=== PATIENT | female | born 1950 | race Caucasian/White ===

== ENCOUNTER 2019-10-23 03:29 | Inpatient (IN) | payer MEDICARE ==
[2019-10-23] MEDS ORDERED: SODIUM CHLORIDE 0.9% 2,000 ML IV ONE ×2 (03:36→11:26)
--- NOTE | 2019-10-23 03:44 | ED ---
Altered Mental Status HPI - General Chief Complaint: Altered Mental Status Stated Complaint: Altered Mental Status Time Seen by Provider: 10/23/19 03:33 Source: patient, EMS Mode of arrival: EMS Limitations: altered mental status - History of Present Illness Initial Comments: This patient is a 69-year-old woman brought by ambulance to be evaluated for a ltered mental status and suspected abdominal pain. The patient does appear to be delirious and is only able to answer simple direct questions. When asked if she is experiencing pain she states everywhere. She denies dyspnea. Otherwise not able to give much history. She does repeatedly state just let me go. Complaint: altered mental status, other -: week(s) Consistency of Symptoms: getting worse Treatments Prior to Arrival: oxygen - Related Data Home Medications Medication Instructions Recorded Confirmed cloNIDine HCL [Catapres] 0.1 mg PO ONCE PRN 10/23/19 10/23/19 Allergies Allergy/AdvReac Type Severity Reaction Status Date / Time No Known Allergies Allergy Verified 10/23/19 07:40 Review of Systems ROS Statement: Those systems with pertinent positive or pertinent negative responses have been documented in the HPI. ROS Other: All systems not noted in ROS Statement are negative. Limitations: ROS unobtainable due to patients medical condition Past Medical History Additional Past Medical History / Comment(s): celiac disease Past Surgical History: Unable to Obtain Past Psychological History: Unable to Obtain Smoking Status: Current every day smoker Past Alcohol Use History: None Reported Past Drug Use History: None Reported - Past Family History Father Family Medical History: Coronary Artery Disease (CAD) Mother Family Medical History: Coronary Artery Disease (CAD) General Exam Limitations: altered mental status General appearance: alert, other (Appears delirious) Head exam: Present: atraumatic, normocephalic Eye exam: Present: normal appearance. Absent: scleral icterus, conjunctival injection ENT exam: Present: mucous membranes dry, other (Or dentition) Neck exam: Present: normal inspection, full ROM Respiratory exam: Present: normal lung sounds bilaterally, rhonchi. Absent: respiratory distress, wheezes, rales Cardiovascular Exam: Present: normal rhythm, tachycardia, normal heart sounds. Absent: systolic murmur, diastolic murmur, rubs, gallop GI/Abdominal exam: Present: distended, tenderness. Absent: guarding, rebound, rigid, mass Extremities exam: Present: pedal edema Neurological exam: Present: alert, CN II-XII intact. Absent: oriented X3, motor sensory deficit Skin exam: Present: warm, dry, intact, pallor. Absent: rash Course Vital Signs 10/23/19 10/23/19 10/23/19 03:30 04:00 04:15 Temperature 97.9 F Pulse Rate 118 H 108 H Pulse Rate [ 113 H Loan Coordinator ] Respiratory 16 20 20 Rate Blood Pressure 78/56 133/85 O2 Sat by Pulse 99 98 Oximetry 10/23/19 10/23/19 10/23/19 04:30 05:00 05:30 Temperature Pulse Rate 101 H 99 98 Pulse Rate [ Loan Coordinator ] Respiratory 24 18 20 Rate Blood Pressure 127/70 127/70 130/85 O2 Sat by Pulse 98 98 98 Oximetry 10/23/19 10/23/19 10/23/19 06:00 06:30 07:30 Temperature Pulse Rate 105 H 109 H 107 H Pulse Rate [ Loan Coordinator ] Respiratory 18 18 18 Rate Blood Pressure 114/84 106/75 103/76 O2 Sat by Pulse 98 98 Oximetry 10/23/19 10/23/19 10/23/19 07:45 08:00 08:15 Temperature 97.9 F Pulse Rate 108 H 110 H 107 H Pulse Rate [ Loan Coordinator ] Respiratory 28 H 32 H 23 Rate Blood Pressure 96/72 96/72 51/20 O2 Sat by Pulse 96 96 Oximetry 10/23/19 10/23/19 10/23/19 08:30 08:45 08:48 Temperature Pulse Rate 107 H 107 H 107 H Pulse Rate [ Loan Coordinator ] Respiratory 39 H 12 24 Rate Blood Pressure 67/25 54/31 98/61 O2 Sat by Pulse 95 Oximetry 10/23/19 10/23/19 08:55 09:18 Temperature Pulse Rate 105 H 104 H Pulse Rate [ Loan Coordinator ] Respiratory 22 18 Rate Blood Pressure 94/57 79/51 O2 Sat by Pulse 94 L 94 L Oximetry - Reevaluation(s) Reevaluation #1: 10/23/19 05:43 Case is discussed with Dr. Short, covering for surgery. His recommendations are incorporated, and he will see the patient shortly this morning. Reevaluation #2: 10/23/19 06:[address] Crowder for intensive care management. I was also informed that the patient had lost her peripheral IV access and will place a central line after being discussed this with patient's . Procedures - Central Line Placement Left SC Consent Obtained: emergent situation Patient Placed on Monitor/Pulse Ox: Yes Prep: mask, gown, gloves Central Line Prep: Chlorhexidine scrub, sterile drapes applied Local Anesthesia Used: Lidocaine 1% Central Line Lumen Inserted: triple Central Line Position: good blood return, all ports aspirated, flushed, capped, sutured in place with nylon Dressing Applied: Tegaderm Post Procedure X-Ray: tip of catheter in good position Patient Tolerated Procedure: well Complications: none - Sepsis Sepsis Focused Exam #1 Sepsis Focused Exam Date: 10/23/19 Sepsis Focused Exam Time: 08:00 Sepsis Focused Exam Complete: Yes Vital Signs & RN Notes Reviewed: Yes Capillary Refill: < 2 Seconds: Fingers Peripheral Pulses: Normal: Radial (R) Skin Color: Pallor Respiratory Exam: respiratory distress (Mild tachypnea), rhonchi Cardiovascular Exam: normal rhythm, tachycardia (Rate 104 bpm), normal heart sounds Medical Decision Making - Medical Decision Making Patient is 69-year-old woman brought from home by ambulance. She does appear to be septic with possible intra-abdominal surgical condition. She is sent directly for CT. Fluid resuscitation and antibiotics started. Surgery on-call was contacted and treatment recommendations are incorporated. Surgeon will see the patient early. I did have discussion with patient and regarding whether they would like surgery and they appear to be struggling with this question and also the question as to CODE STATUS. - Lab Data Result diagrams: 10/23/19 16:00 10/23/19 16:00 Lab Results 10/23/19 10/23/19 10/23/19 Range/Units 03:37 03:37 03:37 WBC 19.2 H (3.8-10.6) k/uL RBC 4.98 (3.80-5.40) m/uL Hgb 16.2 H (11.4-16.0) gm/dL Hct 50.1 H (34.0-46.0) % MCV 100.6 H (80.0-100.0) fL MCH 32.6 (25.0-35.0) pg MCHC 32.4 (31.0-37.0) g/dL RDW 13.6 (11.5-15.5) % Plt Count 418 (150-450) k/uL Neutrophils % 89 % Lymphocytes % 6 % Monocytes % 3 % Eosinophils % 0 % Basophils % 1 % Neutrophils # 17.0 H (1.3-7.7) k/uL Lymphocytes # 1.2 (1.0-4.8) k/uL Monocytes # 0.6 (0-1.0) k/uL Eosinophils # 0.1 (0-0.7) k/uL Basophils # 0.2 (0-0.2) k/uL PT (9.0-12.0) sec INR (<1.2) APTT (22.0-30.0) sec Sodium 138 (137-145) mmol/L Potassium 3.0 L (3.5-5.1) mmol/L Chloride 92 L (98-107) mmol/L Carbon Dioxide 20 L (22-30) mmol/L Anion Gap 26 mmol/L BUN 32 H (7-17) mg/dL Creatinine 2.08 H (0.52-1.04) mg/dL Est GFR (CKD-EPI)AfAm 28 (>60 ml/min/1.73 sqM) Est GFR (CKD-EPI)NonAf 24 (>60 ml/min/1.73 sqM) Glucose 136 H (74-99) mg/dL Lactic Ac Sepsis Rflx Plasma Lactic Acid Aftab 15.6 H* (0.7-2.0) mmol/L Calcium 7.9 L (8.4-10.2) mg/dL Total Bilirubin 2.7 H (0.2-1.3) mg/dL AST 124 H (14-36) U/L ALT 38 H (4-34) U/L Alkaline Phosphatase 232 H (38-126) U/L Troponin I (0.000-0.034) ng/mL Total Protein 5.2 L (6.3-8.2) g/dL Albumin 2.5 L (3.5-5.0) g/dL Amylase <30 L (30-110) U/L Lipase 15 L (23-300) U/L Urine Color Urine Appearance (Clear) Urine RBC (0-5) /hpf Urine WBC (0-5) /hpf Urine WBC Clumps (None) /hpf Urine Bacteria (None) /hpf Hyaline Casts (0-2) /lpf Urine Mucus (None) /hpf Urine Yeast (Budding) (None) /hpf 10/23/19 10/23/19 10/23/19 Range/Units 03:37 03:37 03:45 WBC (3.8-10.6) k/uL RBC (3.80-5.40) m/uL Hgb (11.4-16.0) gm/dL Hct (34.0-46.0) % MCV (80.0-100.0) fL MCH (25.0-35.0) pg MCHC (31.0-37.0) g/dL RDW (11.5-15.5) % Plt Count (150-450) k/uL Neutrophils % % Lymphocytes % % Monocytes % % Eosinophils % % Basophils % % Neutrophils # (1.3-7.7) k/uL Lymphocytes # (1.0-4.8) k/uL Monocytes # (0-1.0) k/uL Eosinophils # (0-0.7) k/uL Basophils # (0-0.2) k/uL PT 13.6 H (9.0-12.0) sec INR 1.4 H (<1.2) APTT 27.3 (22.0-30.0) sec Sodium (137-145) mmol/L Potassium (3.5-5.1) mmol/L Chloride (98-107) mmol/L Carbon Dioxide (22-30) mmol/L Anion Gap mmol/L BUN (7-17) mg/dL Creatinine (0.52-1.04) mg/dL Est GFR (CKD-EPI)AfAm (>60 ml/min/1.73 sqM) Est GFR (CKD-EPI)NonAf (>60 ml/min/1.73 sqM) Glucose (74-99) mg/dL Lactic Ac Sepsis Rflx Plasma Lactic Acid Aftab (0.7-2.0) mmol/L Calcium (8.4-10.2) mg/dL Total Bilirubin (0.2-1.3) mg/dL AST (14-36) U/L ALT (4-34) U/L Alkaline Phosphatase (38-126) U/L Troponin I 0.467 H* (0.000-0.034) ng/mL Total Protein (6.3-8.2) g/dL Albumin (3.5-5.0) g/dL Amylase (30-110) U/L Lipase (23-300) U/L Urine Color Brown Urine Appearance Cloudy H (Clear) Urine RBC 22 H (0-5) /hpf Urine WBC >182 H (0-5) /hpf Urine WBC Clumps Many H (None) /hpf Urine Bacteria Many H (None) /hpf Hyaline Casts 2970 H (0-2) /lpf Urine Mucus Many H (None) /hpf Urine Yeast (Budding) Many H (None) /hpf 10/23/19 Range/Units 04:50 WBC (3.8-10.6) k/uL RBC (3.80-5.40) m/uL Hgb (11.4-16.0) gm/dL Hct (34.0-46.0) % MCV (80.0-100.0) fL MCH (25.0-35.0) pg MCHC (31.0-37.0) g/dL RDW (11.5-15.5) % Plt Count (150-450) k/uL Neutrophils % % Lymphocytes % % Monocytes % % Eosinophils % % Basophils % % Neutrophils # (1.3-7.7) k/uL Lymphocytes # (1.0-4.8) k/uL Monocytes # (0-1.0) k/uL Eosinophils # (0-0.7) k/uL Basophils # (0-0.2) k/uL PT (9.0-12.0) sec INR (<1.2) APTT (22.0-30.0) sec Sodium (137-145) mmol/L Potassium (3.5-5.1) mmol/L Chloride (98-107) mmol/L Carbon Dioxide (22-30) mmol/L Anion Gap mmol/L BUN (7-17) mg/dL Creatinine (0.52-1.04) mg/dL Est GFR (CKD-EPI)AfAm (>60 ml/min/1.73 sqM) Est GFR (CKD-EPI)NonAf (>60 ml/min/1.73 sqM) Glucose (74-99) mg/dL Lactic Ac Sepsis Rflx Y Plasma Lactic Acid Aftab (0.7-2.0) mmol/L Calcium (8.4-10.2) mg/dL Total Bilirubin (0.2-1.3) mg/dL AST (14-36) U/L ALT (4-34) U/L Alkaline Phosphatase (38-126) U/L Troponin I (0.000-0.034) ng/mL Total Protein (6.3-8.2) g/dL Albumin (3.5-5.0) g/dL Amylase (30-110) U/L Lipase (23-300) U/L Urine Color Urine Appearance (Clear) Urine RBC (0-5) /hpf Urine WBC (0-5) /hpf Urine WBC Clumps (None) /hpf Urine Bacteria (None) /hpf Hyaline Casts (0-2) /lpf Urine Mucus (None) /hpf Urine Yeast (Budding) (None) /hpf - EKG Data -: EKG Interpreted by Me EKG shows normal: sinus rhythm, axis (Normal), intervals (Normal) Rate: tachycardia (Rate approximate 1:15 bpm) Critical Care Time Critical Care Time: Yes (40 minutes) Disposition Clinical Impression: Sepsis, Abdominal pain, Bowel obstruction, Acute kidney injury, Elevated troponin I level, Lactic acidosis Disposition: ADMITTED IP TO THIS [facility] Condition: Critical
[2019-10-23 04:16] LABS: INR 1.4 (<1.2); Partial Thromboplastin Time 27.3 sec (22.0-30.0); Prothrombin Time 13.6 sec (9.0-12.0)
[2019-10-23 04:17] LABS: African American GFR (CKD) 28 (>60 ml/min/1.73 sqM); Albumin 2.5 g/dL (3.5-5.0); Alkaline Phosphatase 232 U/L (38-126); Amylase <30 U/L (30-110); Anion Gap 26 mmol/L; Blood Urea Nitrogen 32 mg/dL (7-17); Calcium 7.9 mg/dL (8.4-10.2); Carbon Dioxide 20 mmol/L (22-30); Chloride 92 mmol/L (98-107); Glucose 136 mg/dL (74-99); Non-African American GFR(CKD) 24 (>60 ml/min/1.73 sqM); Sodium 138 mmol/L (137-145); Total Bilirubin 2.7 mg/dL (0.2-1.3); Total Protein 5.2 g/dL (6.3-8.2)
[2019-10-23 04:19] LABS: Bacteria,Urine Many /hpf; Budding Yeast,Urine Many /hpf; Mucus,Urine Many /hpf; RBC,Urine 22 /hpf (0-5); WBC,Urine >182 /hpf (0-5)
[2019-10-23 04:20] LABS: Appearance,Urine Cloudy (Clear); Color,Urine Brown
[2019-10-23 04:21] LABS: Hyaline Casts,Urine 2970 /lpf (0-2)
--- NOTE | 2019-10-23 04:35 | CT ---
EXAMINATION TYPE: CT brain wo con DATE OF EXAM: 10/23/2019 COMPARISON: None HISTORY: AMS CT DLP: 1138.40 mGycm Automated exposure control for dose reduction was used. There is some cerebral cortical atrophy. There is no mass effect nor midline shift. There is no sign of intracranial hemorrhage. There is mild hypodensity in the periventricular white matter. Calvarium is intact. IMPRESSION: Cerebral atrophy and chronic small vessel ischemia. No acute intracranial abnormality.
[2019-10-23 04:36] LABS: Basophils # (A) 0.2 k/uL (0-0.2); Basophils % (A) 1 %; Eosinophils # (A) 0.1 k/uL (0-0.7); Eosinophils % (A) 0 %; HCT 50.1 % (34.0-46.0); HGB 16.2 gm/dL (11.4-16.0); Lymphocytes # (A) 1.2 k/uL (1.0-4.8); Lymphocytes % (A) 6 %; MCH 32.6 pg (25.0-35.0); MCHC 32.4 g/dL (31.0-37.0); MCV 100.6 fL (80.0-100.0); Mean Platelet Volume 7.7; Monocytes # (A) 0.6 k/uL (0-1.0); Monocytes % (A) 3 %; Neutrophils % (A) 89 %; Platelet Count 418 k/uL (150-450); RBC 4.98 m/uL (3.80-5.40); RDW 13.6 % (11.5-15.5); WBC 19.2 k/uL (3.8-10.6)
[2019-10-23 04:46] LABS: ALT 38 U/L (4-34)
[2019-10-23 04:47] LABS: AST 124 U/L (14-36)
--- NOTE | 2019-10-23 04:48 | CT ---
EXAMINATION TYPE: CT abdomen pelvis wo con DATE OF EXAM: 10/23/2019 COMPARISON: 12/02/2009 HISTORY: ABD PAIN CT DLP: 655.2 mGycm Automated exposure control for dose reduction was used. The lung bases are clear of consolidation. There is no pleural effusion. There is diffuse fatty infil tration of the liver. Spleen is intact. Stomach is intact. There is small hiatal hernia. There is sma ll pericardial effusion. There is no evidence of pancreatic mass. There is pancreatic atrophy. There is no adrenal mass. Kidneys show normal size and contour. There is no hydronephrosis. There is dilated large bowel with large amount of fecal material down to the rectum. Cecum measures 10 cm. The re is narrowing of the sigmoid colon in the mid pelvis with surgical clips. This area is not well darshan luated. There appears to be some colonic wall thickening of the sigmoid colon. There is no retroperit anthony adenopathy. Urinary bladder is not well evaluated. There is De La Fuente catheter in the bladder. Blad jose appears empty. There is no inguinal hernia. There is right hip prosthesis. Bony pelvis is intact. There are spondylotic changes in the lumbar spine. There is no compression fracture. 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 There is no mesenteric edema. There is no sign of pneumoperitoneum. IMPRESSION: Dilated large bowel down to the mid sigmoid colon. There is previous surgery. There is possible mass or stricture in this area. Tumor is possible. Follow-up recommended. Fatty infiltration of the liver. Small pericardial effusion.
[2019-10-23] MEDS ORDERED: NICOTINE 14MG/24HR PATCH TRANSDERM STA (05:15)
[2019-10-23] MEDS ORDERED: MORPHINE SULFATE 4 MG/ML SYRINGE IV STA (05:20)
[2019-10-23] MEDS ORDERED: SODIUM CHLORIDE 0.9% 1,000 ML IV ONE ×6 (05:34→19:14)
[2019-10-23] MEDS ORDERED: LEVOFLOXACIN 750MG-D5W PMX 750 MG in DEXTROSE/WATER 1 150ML.BAG IVPB STA (05:43)
[2019-10-23] MEDS: LORazepam 2 MG/ML INJ IV STA ×2 (06:30→07:11)
--- NOTE | 2019-10-23 07:25 | XR ---
EXAMINATION TYPE: XR chest 1V confirm line [facility] DATE OF EXAM: 10/23/2019 COMPARISON: Chest x-ray August 17, 2012. HISTORY: Status post central line and NG tube placement. TECHNIQUE: Single AP portable frontal semiupright view of the chest is obtained. FINDINGS: New Left subclavian central venous catheter terminates in SVC. New nasogastric tube projec ts below diaphragm. Chronic parenchymal changes bilaterally redemonstrated without suspicious focal a irspace opacity, pleural effusion, or pneumothorax seen. Diminished inspiration on current study note d. Cardiac silhouette size is stable and mildly enlarged. Osseous structures are demineralized. Under lying scoliosis there is redemonstrated. Cholecystectomy clips again seen. Partial visualization of g as prominent bowel loops in the upper to mid abdomen noted. IMPRESSION: New nasogastric tube and left-sided subclavian venous catheter are satisfactory in posit ion. No pneumothorax. Mild cardiomegaly and chronic parenchymal changes without suspicious acute pulm onary process.
[2019-10-23] MEDS ORDERED: NOREPINEPHRINE 32 MG in SODIUM CHLORIDE 0.9% 218 ML IV ONE (08:16)
[2019-10-23] MEDS ORDERED: FAMOTIDINE 20 MG/2 ML VIAL IV SCH (09:00)
[2019-10-23 10:04] LABS: Glucose,Whole Blood 77 mg/dL (75-99)
--- NOTE | 2019-10-23 10:13 | CT ---
EXAMINATION TYPE: CT abdomen pelvis wo con DATE OF EXAM: 10/23/2019 HISTORY: colonic obstruction CT DLP: 716.1 mGycm. Automated Exposure Control for Dose Reduction was Utilized. TECHNIQUE: CT scan of the abdomen and pelvis is performed without oral or IV contrast. Attempt is made with rectal contrast. COMPARISON: CT earlier today. FINDINGS: Within the limitations of a non-contrast study, the following observations are made. LUNG BASES: No significant abnormality is appreciated. LIVER/GB: Liver remains markedly low dense consistent with diffuse fatty infiltration. Cholecystectom y clips are redemonstrated. PANCREAS: Mild/moderate generalized atrophy. SPLEEN: New small amount of perisplenic ascites posterior lateral margin axial image 20. ADRENALS: No significant abnormality is seen. KIDNEYS: No renal calculi or hydronephrosis bilaterally. De La Fuente catheter in decompressed bladder redem onstrated. BOWEL: Interval placement of nasogastric tube with decompression of stomach. Central small bowel loop s are slightly prominent with few air-fluid levels. No greater than 3 cm dilatation is present. There is marked fecal filled dilatation of the colon from cecum to proximal sigmoid colon level similar to prior. There is limited amount of contrast in the rectum. Mid to distal sigmoid colon shows persiste nt soft tissue irregularity axial image 107 likely reflecting obstructing apple core-type neoplasm gi jd the amount of proximal colonic distention. This finding is best appreciated on axial image 106 an d has similar appearance to prior CT image. Colonic distention up to 9.6 cm noted involving right col on similar to prior. There is some curvilinear nondependent air towards the hepatic flexure for refer ence axial image 57, this could reflect air trapped by fecal debris but pneumatosis cannot be exclude d. No portal venous air or pneumoperitoneum is present. Gas nondilated terminal ileum seen on coronal image 59. GENITAL ORGANS: Uterus is surgically absent. Surgical clips in the pelvis are seen LYMPH NODES: No greater than 1cm abdominal or pelvic lymph nodes are appreciated. OSSEOUS STRUCTURES: Osseous structures are demineralized. Metallic hardware from right hip arthroplas ty causes streak artifact limiting evaluation of of pelvic structures. Advanced degenerative change l eft hip with marked joint space loss and [id number] appearance with extensive subchondral cystic ch gunjan and spurring is redemonstrated. Loss of normal curvature of the spine with multilevel spurring i n the thoracic spine. There is moderate disc space narrowing and vacuum disc phenomenon L4-L5 and L5- S1 levels redemonstrated. OTHER: [id number] diffuse subcutaneous edema remains present. IMPRESSION: Suboptimal opacification of colon with attempted rectal contrast. There is redemonstratio n of high-grade mid sigmoid colonic obstruction likely on basis of colonic neoplasm. Colonic distenti on up to 9.6 cm present. Areas of pneumatosis are not entirely excluded though I favor trapped air. C orrelate clinically with lactic acid values. Advise surgical exploration.
[2019-10-23] MEDS: SODIUM CHLORIDE 0.9% 1,000 ML IV ONE ×2 (10:31→12:01)
[2019-10-23] MEDS ORDERED: HYDROmorphone 1 MG/ML 1 ML SYRINGE IVP PRN (11:06)
[2019-10-23] MEDS: HEPARIN SODIUM,PORCINE 5,000 UNIT/ML 1 ML VIAL SQ SCH ×2 (11:17→18:02)
[2019-10-23] MEDS: PIPERACILLIN-TAZOBACTAM 3.375 GM in SODIUM CHLORIDE 0.9% 100 ML IVPB SCH ×2 (11:17→19:02)
[2019-10-23] MEDS: SODIUM CHLORIDE 0.9% 1,000 ML IV SCH ×2 (12:00→19:22)
--- NOTE | 2019-10-23 12:04 | P.GSCN ---
History of Present Illness Consult date: 10/23/19 Reason for Consult: abdominal pain Requesting physician: Brice Hernandez History of present illness: CHIEF COMPLAINT: abdominal pain HISTORY OF PRESENT ILLNESS: 69-year-old female who presented to the emergency room due to altered mental status and abdominal pain. She underwent CT abdomen and pelvis which revealed dilated large bowel down to the mid sigmoid colon. Possible mass or stricture. Repeat CT was performed with rectal contrast. 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 Colonic distention up to 9.6 cm present. General surgery was consulted for evaluation. Patient examined in the intensive care unit with Dr. Short. Patient's is at the bedside who is providing the majority of the history. He states the patient has been having abdominal pain for approximately 3 weeks. He states she has been unable to keep food or fluids down for almost two weeks. Patient is confused and in wrist restraints. She appears uncomfortable and in pain. Patient has received 3L in IV fluids. She is on Levophed for BP support. PAST MEDICAL HISTORY: See list. PAST SURGICAL HISTORY: See list. SOCIAL HISTORY: No illicit drug use. REVIEW OF SYSTEMS: Unable to obtain secondary to altered mental status PHYSICAL EXAM: VITAL SIGNS: Reviewed. GENERAL: Well-developed in no mild distress-appears uncomfortable. HEENT: No sclera icterus. Extraocular movements grossly intact. Moist buccal mucosa. Head is atraumatic, normocephalic. ABDOMEN: Distended. Tender to palpation. NG to LIS present. NEUROLOGIC: Awake. Confused. LABORATORY DATA: WBC 19.2. Hemoglobin 16.2. Platelet count 418. Sodium 138. Potassium 3.0. BUN 32. Creatinine 2.08. Lactic acid 15.6. Repeat 14.1. IMAGING: CT abdomen and pelvis which revealed dilated large bowel down to the mid sigmoid colon. Possible mass or stricture. Repeat CT was performed with rectal contrast. 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 Colonic distention up to 9.6 cm present ASSESSMENT: 1. Abdominal pain 2. Colonic obstruction, likely secondary to neoplasm PLAN: Continue ICU management per Dr. Crowder Continue IV fluids. Continue vasopressors Additional 3L NS boluses to be given now Continue NG to LIS. Continue NPO status Monitor WBC. Continue IV antibiotics Patient to undergo exploratory laparotomy today with Dr. Short Nurse practitioner note has been reviewed by physician. Signing provider agrees with the documented findings, assessment, and plan of care. Past Medical History Past Medical History: Chest Pain / Angina, Hypertension, Osteoarthritis (OA) Additional Past Medical History / Comment(s): Spouse states pt has had nausea, vomiting and abdominal pain after eating for the past 2 weeks, celiac disease, chronic back pain, chronic pain syndrome, DJD, bursitis, antral erosions, gastritis, smalll hiatal hernia, diverticulitis, UTI, osteoporosis, anemia, past coccyx/rib fractures History of Any Multi-Drug Resistant Organisms: None Reported Past Surgical History: Joint Replacement, Tonsillectomy Additional Past Surgical History / Comment(s): Spouse states pt had a total hysterectomy and some benign tumors removed from her abdomin at [facility] years ago, EGD, colonoscopy, total R hip arthroplasty. Past Anesthesia/Blood Transfusion Reactions: No Reported Reaction Additional Past Anesthesia/Blood Transfusion Reaction / Comm: Pt received blood in past without reaction. Smoking Status: Current every day smoker - Past Family History Father Family Medical History: Coronary Artery Disease (CAD) Mother Family Medical History: Coronary Artery Disease (CAD) Medications and Allergies Home Medications Medication Instructions Recorded Confirmed Type cloNIDine HCL [Catapres] 0.1 mg PO ONCE PRN 10/23/19 10/23/19 History Allergies Allergy/AdvReac Type Severity Reaction Status Date / Time No Known Allergies Allergy Verified 10/23/19 07:40 Surgical - Exam Vital Signs Temp Pulse Resp BP Pulse Ox 97.9 F 118 H 16 78/56 99 10/23/19 03:30 10/23/19 03:30 10/23/19 03:30 10/23/19 03:30 10/23/19 03:30 Results - Labs 10/23/19 03:37 10/23/19 03:37 Abnormal Lab Results - Last 24 Hours (Table) 10/23/19 10/23/19 10/23/19 Range/Units 03:37 03:37 03:37 WBC 19.2 H (3.8-10.6) k/uL Hgb 16.2 H (11.4-16.0) gm/dL Hct 50.1 H (34.0-46.0) % MCV 100.6 H (80.0-100.0) fL Neutrophils # 17.0 H (1.3-7.7) k/uL PT (9.0-12.0) sec INR (<1.2) Potassium 3.0 L (3.5-5.1) mmol/L Chloride 92 L (98-107) mmol/L Carbon Dioxide 20 L (22-30) mmol/L BUN 32 H (7-17) mg/dL Creatinine 2.08 H (0.52-1.04) mg/dL Glucose 136 H (74-99) mg/dL Plasma Lactic Acid Aftab 15.6 H* (0.7-2.0) mmol/L Calcium 7.9 L (8.4-10.2) mg/dL Total Bilirubin 2.7 H (0.2-1.3) mg/dL AST 124 H (14-36) U/L ALT 38 H (4-34) U/L Alkaline Phosphatase 232 H (38-126) U/L Troponin I (0.000-0.034) ng/mL Total Protein 5.2 L (6.3-8.2) g/dL Albumin 2.5 L (3.5-5.0) g/dL Amylase <30 L (30-110) U/L Lipase 15 L (23-300) U/L Urine Appearance (Clear) Urine RBC (0-5) /hpf Urine WBC (0-5) /hpf Urine WBC Clumps (None) /hpf Urine Bacteria (None) /hpf Hyaline Casts (0-2) /lpf Urine Mucus (None) /hpf Urine Yeast (Budding) (None) /hpf 10/23/19 10/23/19 10/23/19 Range/Units 03:37 03:37 03:45 WBC (3.8-10.6) k/uL Hgb (11.4-16.0) gm/dL Hct (34.0-46.0) % MCV (80.0-100.0) fL Neutrophils # (1.3-7.7) k/uL PT 13.6 H (9.0-12.0) sec INR 1.4 H (<1.2) Potassium (3.5-5.1) mmol/L Chloride (98-107) mmol/L Carbon Dioxide (22-30) mmol/L BUN (7-17) mg/dL Creatinine (0.52-1.04) mg/dL Glucose (74-99) mg/dL Plasma Lactic Acid Aftab (0.7-2.0) mmol/L Calcium (8.4-10.2) mg/dL Total Bilirubin (0.2-1.3) mg/dL AST (14-36) U/L ALT (4-34) U/L Alkaline Phosphatase (38-126) U/L Troponin I 0.467 H* (0.000-0.034) ng/mL Total Protein (6.3-8.2) g/dL Albumin (3.5-5.0) g/dL Amylase (30-110) U/L Lipase (23-300) U/L Urine Appearance Cloudy H (Clear) Urine RBC 22 H (0-5) /hpf Urine WBC >182 H (0-5) /hpf Urine WBC Clumps Many H (None) /hpf Urine Bacteria Many H (None) /hpf Hyaline Casts 2970 H (0-2) /lpf Urine Mucus Many H (None) /hpf Urine Yeast (Budding) Many H (None) /hpf 10/23/19 Range/Units 08:30 WBC (3.8-10.6) k/uL Hgb (11.4-16.0) gm/dL Hct (34.0-46.0) % MCV (80.0-100.0) fL Neutrophils # (1.3-7.7) k/uL PT (9.0-12.0) sec INR (<1.2) Potassium (3.5-5.1) mmol/L Chloride (98-107) mmol/L Carbon Dioxide (22-30) mmol/L BUN (7-17) mg/dL Creatinine (0.52-1.04) mg/dL Glucose (74-99) mg/dL Plasma Lactic Acid Aftab 14.1 H* (0.7-2.0) mmol/L Calcium (8.4-10.2) mg/dL Total Bilirubin (0.2-1.3) mg/dL AST (14-36) U/L ALT (4-34) U/L Alkaline Phosphatase (38-126) U/L Troponin I (0.000-0.034) ng/mL Total Protein (6.3-8.2) g/dL Albumin (3.5-5.0) g/dL Amylase (30-110) U/L Lipase (23-300) U/L Urine Appearance (Clear) Urine RBC (0-5) /hpf Urine WBC (0-5) /hpf Urine WBC Clumps (None) /hpf Urine Bacteria (None) /hpf Hyaline Casts (0-2) /lpf Urine Mucus (None) /hpf Urine Yeast (Budding) (None) /hpf Microbiology - Last 24 Hours (Table) 10/23/19 03:45 Urine Culture - Preliminary Urine,Clean Catch Diabetes panel 10/23/19 Range/Units 03:37 Sodium 138 (137-145) mmol/L Potassium 3.0 L (3.5-5.1) mmol/L Chloride 92 L (98-107) mmol/L Carbon Dioxide 20 L (22-30) mmol/L BUN 32 H (7-17) mg/dL Creatinine 2.08 H (0.52-1.04) mg/dL Glucose 136 H (74-99) mg/dL Calcium 7.9 L (8.4-10.2) mg/dL AST 124 H (14-36) U/L ALT 38 H (4-34) U/L Alkaline Phosphatase 232 H (38-126) U/L Total Protein 5.2 L (6.3-8.2) g/dL Albumin 2.5 L (3.5-5.0) g/dL Calcium panel 10/23/19 Range/Units 03:37 Calcium 7.9 L (8.4-10.2) mg/dL Albumin 2.5 L (3.5-5.0) g/dL Pituitary panel 10/23/19 Range/Units 03:37 Sodium 138 (137-145) mmol/L Potassium 3.0 L (3.5-5.1) mmol/L Chloride 92 L (98-107) mmol/L Carbon Dioxide 20 L (22-30) mmol/L BUN 32 H (7-17) mg/dL Creatinine 2.08 H (0.52-1.04) mg/dL Glucose 136 H (74-99) mg/dL Calcium 7.9 L (8.4-10.2) mg/dL Adrenal panel 10/23/19 Range/Units 03:37 Sodium 138 (137-145) mmol/L Potassium 3.0 L (3.5-5.1) mmol/L Chloride 92 L (98-107) mmol/L Carbon Dioxide 20 L (22-30) mmol/L BUN 32 H (7-17) mg/dL Creatinine 2.08 H (0.52-1.04) mg/dL Glucose 136 H (74-99) mg/dL Calcium 7.9 L (8.4-10.2) mg/dL Total Bilirubin 2.7 H (0.2-1.3) mg/dL AST 124 H (14-36) U/L ALT 38 H (4-34) U/L Alkaline Phosphatase 232 H (38-126) U/L Total Protein 5.2 L (6.3-8.2) g/dL Albumin 2.5 L (3.5-5.0) g/dL
[2019-10-23 12:06] LABS: ABG Base Excess -12.9 mmol/L; ABG HCO3 16 mmol/L (21-25); ABG Oxygen Saturation 97.5 % (94-97); ABG PCO2 42 mmHg (35-45); ABG PO2 130 mmHg (83-108); ABG TCO2 17 mmol/L (19-24); Allen Test Performed? Yes
[2019-10-23 12:08] LABS: ABG PH 7.18 (7.35-7.45)
[2019-10-23] MEDS ORDERED: SODIUM BICARB 8.4% 50 ML SYR (1 MEQ/ML) IV STA (12:19)
[2019-10-23] MEDS ORDERED: SODIUM BICARB 8.4% 50 ML SYR (1 MEQ/ML) ONE (12:23)
[2019-10-23] MEDS: POTASSIUM CHLORIDE 20 MEQ in WATER FOR INJECTION 1 100ML.BAG IVPB SCH ×4 (13:26→22:51)
[2019-10-23] MEDS ORDERED: DEXTROSE 5% IN WATER 1,000 ML with SODIUM BICARB (1 MEQ/ML) 150 ML IV SCH ×2 (13:45→22:20)
--- NOTE | 2019-10-23 14:28 | P.HPIM ---
History of Present Illness 63-year-old female came in with his department compensative altered mental status severe abdominal pain patient symptoms has been going on for about a week and patient was also complaining of abdominal pain for about a week was having nausea vomiting multiple episodes. Patient is found to have acute abdominis be is going to walk now patient CT of the abdomen showed dilated large bowel. There is a possibility of free DORI in the abdomen as well. Patient is severely septic is in septic shock patient was started on broad-spectrum antibiotics patient is on Levothroid at this time receiving IV fluids barely making any urine. Patient has acute tubular necrosis patient received a 3 L of IV fluids and we're giving 2 more liters of IV fluid along with the continuous drip of normal saline at 1 50 mL per hour patient's lactic acid is highly elevated A about 14. Review of Systems Unable to obtain at this time patient is in distress and in pain Past Medical History Past Medical History: Chest Pain / Angina, Hypertension, Osteoarthritis (OA) Additional Past Medical History / Comment(s): Spouse states pt has had nausea, vomiting and abdominal pain after eating for the past 2 weeks, celiac disease, chronic back pain, chronic pain syndrome, DJD, bursitis, antral erosions, gastritis, smalll hiatal hernia, diverticulitis, UTI, osteoporosis, anemia, past coccyx/rib fractures History of Any Multi-Drug Resistant Organisms: None Reported Past Surgical History: Joint Replacement, Tonsillectomy Additional Past Surgical History / Comment(s): Spouse states pt had a total hysterectomy and some benign tumors removed from her abdomin at [facility] years ago, EGD, colonoscopy, total R hip arthroplasty. Past Anesthesia/Blood Transfusion Reactions: No Reported Reaction Additional Past Anesthesia/Blood Transfusion Reaction / Comment(s): Pt received blood in past without reaction. Smoking Status: Current every day smoker - Past Family History Father Family Medical History: Coronary Artery Disease (CAD) Mother Family Medical History: Coronary Artery Disease (CAD) Medications and Allergies Home Medications Medication Instructions Recorded Confirmed Type cloNIDine HCL [Catapres] 0.1 mg PO ONCE PRN 10/23/19 10/23/19 History Allergies Allergy/AdvReac Type Severity Reaction Status Date / Time No Known Allergies Allergy Verified 10/23/19 07:40 Physical Exam Vitals: Vital Signs Temp Pulse Pulse Resp BP Pulse Ox 10/23/19 10:44 109 H 23 79/60 96 10/23/19 10:00 97.4 F L 107 H 22 121/74 94 L 10/23/19 09:18 104 H 18 79/51 94 L 10/23/19 08:55 105 H 22 94/57 94 L 10/23/19 08:48 107 H 24 98/61 95 10/23/19 08:45 107 H 12 54/31 10/23/19 08:30 107 H 39 H 67/25 10/23/19 08:15 107 H 23 51/20 96 10/23/19 08:00 97.9 F 110 H 32 H 96/72 96 10/23/19 07:45 108 H 28 H 96/72 10/23/19 07:30 107 H 18 103/76 10/23/19 06:30 109 H 18 106/75 98 10/23/19 06:00 105 H 18 114/84 98 10/23/19 05:30 98 20 130/85 98 10/23/19 05:00 99 18 127/70 98 10/23/19 04:30 101 H 24 127/70 98 10/23/19 04:15 113 H 20 10/23/19 04:00 108 H 20 133/85 98 10/23/19 03:30 97.9 F 118 H 16 78/56 99 Intake and Output 10/22/19 10/23/19 10/23/19 22:59 06:59 14:59 Intake Total 0.665 Output Total 0 Balance 0.665 Intake: IV 0 Normal saline 0 Piperacillin-Tazobactam 3 0 .375 gm In Sodium Chloride 0.9% 100 ml @ 25 mls/hr IVPB Q8HR [facility] Rx# :[id number] Sodium Chloride 0.9% 1, 0 000 ml @ 150 mls/hr IV . Q6H40M [facility] Rx#:[id number] pressure bag 0 Intake, IV Titration 0.665 Amount Norepinephrine 32 mg In 0.665 Sodium Chloride 0.9% 218 ml @ 0.01 MCG/KG/MIN 0. 298 mls/hr IV .Q24H [facility] Rx#:[id number] Output: Urine 0 Other: Weight 63.503 kg 63.503 kg PHYSICAL EXAMINATION: GENERAL: Patient is in distress because of abdominal pain and severe sepsis HEENT: Pupils are round and equally reacting to light. EOMI. No scleral icterus. No conjunctival pallor. Normocephalic, atraumatic. No pharyngeal erythema. No thyromegaly. CARDIOVASCULAR: S1 and S2 present. No murmurs, rubs, or gallops. Tachycardic PULMONARY: Chest is clear to auscultation, no wheezing or crackles. ABDOMEN: Diffuse tenderness with rebound or rigidity MUSCULOSKELETAL: No joint swelling or deformity. EXTREMITIES: No cyanosis, clubbing, or pedal edema. NEUROLOGICAL: Unable to assess at this time patient is definitely confused due to toxic encephalopathy from sepsis SKIN: No rashes. Results CBC & Chem 7: 10/23/19 03:37 10/23/19 03:37 Labs: Abnormal Lab Results - Last 24 Hours (Table) 10/23/19 10/23/19 10/23/19 Range/Units 03:37 03:37 03:37 WBC 19.2 H (3.8-10.6) k/uL Hgb 16.2 H (11.4-16.0) gm/dL Hct 50.1 H (34.0-46.0) % MCV 100.6 H (80.0-100.0) fL Neutrophils # 17.0 H (1.3-7.7) k/uL PT (9.0-12.0) sec INR (<1.2) ABG pH (7.35-7.45) ABG pO2 (83-108) mmHg ABG HCO3 (21-25) mmol/L ABG Total CO2 (19-24) mmol/L ABG O2 Saturation (94-97) % Potassium 3.0 L (3.5-5.1) mmol/L Chloride 92 L (98-107) mmol/L Carbon Dioxide 20 L (22-30) mmol/L BUN 32 H (7-17) mg/dL Creatinine 2.08 H (0.52-1.04) mg/dL Glucose 136 H (74-99) mg/dL Plasma Lactic Acid Aftab 15.6 H* (0.7-2.0) mmol/L Calcium 7.9 L (8.4-10.2) mg/dL Total Bilirubin 2.7 H (0.2-1.3) mg/dL AST 124 H (14-36) U/L ALT 38 H (4-34) U/L Alkaline Phosphatase 232 H (38-126) U/L Troponin I (0.000-0.034) ng/mL Total Protein 5.2 L (6.3-8.2) g/dL Albumin 2.5 L (3.5-5.0) g/dL Amylase <30 L (30-110) U/L Lipase 15 L (23-300) U/L Urine Appearance (Clear) Urine RBC (0-5) /hpf Urine WBC (0-5) /hpf Urine WBC Clumps (None) /hpf Urine Bacteria (None) /hpf Hyaline Casts (0-2) /lpf Urine Mucus (None) /hpf Urine Yeast (Budding) (None) /hpf 10/23/19 10/23/19 10/23/19 Range/Units 03:37 03:37 03:45 WBC (3.8-10.6) k/uL Hgb (11.4-16.0) gm/dL Hct (34.0-46.0) % MCV (80.0-100.0) fL Neutrophils # (1.3-7.7) k/uL PT 13.6 H (9.0-12.0) sec INR 1.4 H (<1.2) ABG pH (7.35-7.45) ABG pO2 (83-108) mmHg ABG HCO3 (21-25) mmol/L ABG Total CO2 (19-24) mmol/L ABG O2 Saturation (94-97) % Potassium (3.5-5.1) mmol/L Chloride (98-107) mmol/L Carbon Dioxide (22-30) mmol/L BUN (7-17) mg/dL Creatinine (0.52-1.04) mg/dL Glucose (74-99) mg/dL Plasma Lactic Acid Aftab (0.7-2.0) mmol/L Calcium (8.4-10.2) mg/dL Total Bilirubin (0.2-1.3) mg/dL AST (14-36) U/L ALT (4-34) U/L Alkaline Phosphatase (38-126) U/L Troponin I 0.467 H* (0.000-0.034) ng/mL Total Protein (6.3-8.2) g/dL Albumin (3.5-5.0) g/dL Amylase (30-110) U/L Lipase (23-300) U/L Urine Appearance Cloudy H (Clear) Urine RBC 22 H (0-5) /hpf Urine WBC >182 H (0-5) /hpf Urine WBC Clumps Many H (None) /hpf Urine Bacteria Many H (None) /hpf Hyaline Casts 2970 H (0-2) /lpf Urine Mucus Many H (None) /hpf Urine Yeast (Budding) Many H (None) /hpf 10/23/19 10/23/19 10/23/19 Range/Units 08:30 11:58 12:05 WBC (3.8-10.6) k/uL Hgb (11.4-16.0) gm/dL Hct (34.0-46.0) % MCV (80.0-100.0) fL Neutrophils # (1.3-7.7) k/uL PT (9.0-12.0) sec INR (<1.2) ABG pH 7.18 L* (7.35-7.45) ABG pO2 130 H (83-108) mmHg ABG HCO3 16 L (21-25) mmol/L ABG Total CO2 17 L (19-24) mmol/L ABG O2 Saturation 97.5 H (94-97) % Potassium (3.5-5.1) mmol/L Chloride (98-107) mmol/L Carbon Dioxide (22-30) mmol/L BUN (7-17) mg/dL Creatinine (0.52-1.04) mg/dL Glucose (74-99) mg/dL Plasma Lactic Acid Aftab 14.1 H* 10.8 H* (0.7-2.0) mmol/L Calcium (8.4-10.2) mg/dL Total Bilirubin (0.2-1.3) mg/dL AST (14-36) U/L ALT (4-34) U/L Alkaline Phosphatase (38-126) U/L Troponin I (0.000-0.034) ng/mL Total Protein (6.3-8.2) g/dL Albumin (3.5-5.0) g/dL Amylase (30-110) U/L Lipase (23-300) U/L Urine Appearance (Clear) Urine RBC (0-5) /hpf Urine WBC (0-5) /hpf Urine WBC Clumps (None) /hpf Urine Bacteria (None) /hpf Hyaline Casts (0-2) /lpf Urine Mucus (None) /hpf Urine Yeast (Budding) (None) /hpf Microbiology - Last 24 Hours (Table) 10/23/19 03:45 Urine Culture - Preliminary Urine,Clean Catch Thrombosis Risk Factor Assmnt - Choose All That Apply Any of the Below Risk Factors Present?: Yes Each Factor Represents 1 point: Sepsis (< 1month) Other Risk Factors: Yes Each Risk Factor Represents 2 Points: Age 61-74 years Other congenital or acquired thrombophilia - If yes, enter type in comment: No Thrombosis Risk Factor Assessment Total Risk Factor Score: 3 Thrombosis Risk Factor Assessment Level: Moderate Risk Assessment and Plan Plan: -Septic shock: Secondary to possible intra-abdominal process or acute abdomen continue with Zosyn and levofloxacin was discontinued patient will go to or for exploratory laparotomy today. We fluids can you with norepinephrine -Severe anion gap metabolic acidosis secondary to lactic acidosis from severe sepsis and septic shock. Continue with IV fluids continue pressor support --Acute renal failure and do not have her baseline creatinine and this is secondary to possibly acute tubular necrosis patient is anuric at this time continue with the above-mentioned plan. -Hypokalemia: Secondary to nausea vomiting, potassium will be replaced -Elevated troponin secondary to sepsis -Elevated liver enzymes secondary to shock liver from sepsis -Toxic encephalopathy secondary to sepsis -Sinus tach cardia secondary to sepsis -Hypertension patient is presently hypotensive -depression DVT prophylaxis obtaining 7 GI prophylaxis with Protonix
--- NOTE | 2019-10-23 14:48 | P.CNPUL ---
History of Present Illness Consult date: 10/23/19 Requesting physician: Joe Lincoln Reason for consult: other (Abdominal sepsis and bowel obstruction) Chief complaint: Abdominal pain History of present illness: This is a 69-year-old female with no significant past medical history except for history of right hip arthroplasty, history of benign abdominal tumor removed years ago at [facility], could not explain what kind of tumor she had. Patient is new to our hospital, patient was brought into the ER with almost 2 weeks history of altered mental status and abdominal pain. And she was also complaining of having no bowel movement for at least a week. Patient had a CT of the abdomen and pelvis and revealed dilated large bowel down to the mid sigmoid colon consistent with bowel obstruction, however the possibility of stricture or mass was entertained based on radiology report. In the meantime the patient was experiencing severe abdominal pain, occasional episodes of diaphoresis nausea and vomiting, and she was noted to have hypotension in the ER. She was fluid resuscitated, and did not improve much with 3 L of fluids, she was found to have lactic acidosis consistent with sepsis. Patient was given more fluids and placed on norepinephrine drip. Transferred to the ICU, she was only on 2 L nasal cannula, saturating quite well. As a matter of fact her ABG showed a pO2 of 130 pCO2 of 42 pH was 7.18 patient received sodium bicarb and she was placed on bicarb drip. Her lactic acid came down from 14.1 on admission down to 10.8 after few liters of fluids were given. Patient was started on antibiotics in the form of Zosyn. I personally called the surgeon on the case, and stressed to him the importance of taking this patient to surgery as soon as possible patient clearly has what seems to be abdominal sepsis and surgical abdomen. He agreed, and he came into see the patient, and arrangements are bein g made for exploratory laparotomy. In the meantime we'll continue to fluid resuscitate the patient, started the patient also on antibiotics, and started on norepinephrine as well as sodium bicarb drip. Review of Systems ROS unobtainable: due to mental status (Patient is quite confused, also seems to be confused, could not give me a good adequate history about her symptoms and review of system.) Past Medical History Past Medical History: Chest Pain / Angina, Hypertension, Osteoarthritis (OA) Additional Past Medical History / Comment(s): Spouse states pt has had nausea, vomiting and abdominal pain after eating for the past 2 weeks, celiac disease, chronic back pain, chronic pain syndrome, DJD, bursitis, antral erosions, gastritis, smalll hiatal hernia, diverticulitis, UTI, osteoporosis, anemia, past coccyx/rib fractures History of Any Multi-Drug Resistant Organisms: None Reported Past Surgical History: Joint Replacement, Tonsillectomy Additional Past Surgical History / Comment(s): Spouse states pt had a total hysterectomy and some benign tumors removed from her abdomin at [facility] years ago, EGD, colonoscopy, total R hip arthroplasty. Past Anesthesia/Blood Transfusion Reactions: No Reported Reaction Additional Past Anesthesia/Blood Transfusion Reaction / Comment(s): Pt received blood in past without reaction. Smoking Status: Current every day smoker - Past Family History Father Family Medical History: Coronary Artery Disease (CAD) Mother Family Medical History: Coronary Artery Disease (CAD) Medications and Allergies Home Medications Medication Instructions Recorded Confirmed Type cloNIDine HCL [Catapres] 0.1 mg PO ONCE PRN 10/23/19 10/23/19 History Allergies Allergy/AdvReac Type Severity Reaction Status Date / Time No Known Allergies Allergy Verified 10/23/19 07:40 Physical Exam Vitals: Vital Signs Temp Pulse Pulse Resp BP Pulse Ox 10/23/19 14:15 109 H 10 L 96/59 96 10/23/19 14:00 107 H 19 91/50 96 10/23/19 13:45 107 H 18 85/60 94 L 10/23/19 13:30 106 H 17 98/85 96 10/23/19 13:15 106 H 22 106/62 96 10/23/19 13:00 106 H 13 106/69 96 10/23/19 12:45 107 H 13 112/69 95 10/23/19 12:30 105 H 11 L 90/70 97 10/23/19 12:15 101 H 17 85/66 97 10/23/19 12:00 96.5 F L 102 H 17 111/63 97 10/23/19 11:45 102 H 20 88/72 97 10/23/19 11:30 106 H 15 92/59 96 10/23/19 11:15 105 H 39 H 103/76 90 L 10/23/19 11:00 105 H 12 79/57 95 10/23/19 10:45 109 H 16 79/60 92 L 10/23/19 10:44 109 H 23 79/60 96 10/23/19 10:00 97.4 F L 107 H 22 121/74 94 L 10/23/19 09:18 104 H 18 79/51 94 L 10/23/19 08:55 105 H 22 94/57 94 L 10/23/19 08:48 107 H 24 98/61 95 10/23/19 08:45 107 H 12 54/31 10/23/19 08:30 107 H 39 H 67/25 10/23/19 08:15 107 H 23 51/20 96 10/23/19 08:00 97.9 F 110 H 32 H 96/72 96 10/23/19 07:45 108 H 28 H 96/72 10/23/19 07:30 107 H 18 103/76 10/23/19 06:30 109 H 18 106/75 98 10/23/19 06:00 105 H 18 114/84 98 10/23/19 05:30 98 20 130/85 98 10/23/19 05:00 99 18 127/70 98 10/23/19 04:30 101 H 24 127/70 98 10/23/19 04:15 113 H 20 10/23/19 04:00 108 H 20 133/85 98 10/23/19 03:30 97.9 F 118 H 16 78/56 99 Intake and Output 10/22/19 10/23/19 10/23/19 22:59 06:59 14:59 Intake Total 5584.642 Output Total 0 Balance 5584.642 Intake: IV 5562 Dextrose 5% in Water 1, 150 000 ml @ 150 mls/hr IV . Q7H40M MAXWELL with Sodium Bicarb (1 Meq/ml) 150 ml Rx#:[id number] Normal saline 5000 Piperacillin-Tazobactam 3 100 .375 gm In Sodium Chloride 0.9% 100 ml @ 25 mls/hr IVPB Q8HR MAXWELL Rx# :[id number] Sodium Chloride 0.9% 1, 300 000 ml @ 150 mls/hr IV . Q6H40M MAXWELL Rx#:[id number] pressure bag 12 Intake, IV Titration 22.642 Amount Norepinephrine 32 mg In 22.642 Sodium Chloride 0.9% 218 ml @ 0.01 MCG/KG/MIN 0. 298 mls/hr IV .Q24H ONE Rx#:[id number] Output: Urine 0 Other: Weight 63.503 kg 63.503 kg Physical Exam: Revealed a 69-year-old female pale looking, in moderate distress secondary to abdominal pain. On 2 L nasal cannula. Head: Atraumatic, normocephalic, dry mucous membranes were noted. HEENT:[Neck is supple.] [No neck masses.] [No thyromegaly.] [No JVD.] PERRLA, EOMI, no active, dry mucous membranes noted. Chest: [Clear throughout, no crackles, no rhonchi, no wheezes.] Cardiac Exam: [Normal S1 and S2, no S3 gallop, no murmur.] Abdomen: [Distended abdomen, extremely tender to any palpation, no bowel sounds, positive guarding. And positive rebound. Extremities: [No clubbing, no edema, no cyanosis.] Neurological Exam: Patient is awake, does not follow any instructions, moaning and groaning secondary to pain, seems to be quite confused. Psychiatric: Blunted affect, depressed mood, poor mental status. Skin: No rashes. Lymphatics: No lymphadenopathy. Results - Laboratory Findings CBC and BMP: 10/23/19 03:37 10/23/19 03:37 ABG ABG pH 7.18 (7.35-7.45) L* 10/23/19 11:58 ABG pCO2 42 mmHg (35-45) 10/23/19 11:58 ABG pO2 130 mmHg (83-108) H 10/23/19 11:58 ABG O2 Saturation 97.5 % (94-97) H 10/23/19 11:58 PT/INR, D-dimer PT 13.6 sec (9.0-12.0) H 10/23/19 03:37 INR 1.4 (<1.2) H 10/23/19 03:37 Abnormal lab findings: Abnormal Labs 10/23/19 10/23/19 10/23/19 03:37 03:37 03:37 WBC 19.2 H Hgb 16.2 H Hct 50.1 H MCV 100.6 H Neutrophils # 17.0 H PT INR ABG pH ABG pO2 ABG HCO3 ABG Total CO2 ABG O2 Saturation Potassium 3.0 L Chloride 92 L Carbon Dioxide 20 L BUN 32 H Creatinine 2.08 H Glucose 136 H Plasma Lactic Acid Aftab 15.6 H* Calcium 7.9 L Total Bilirubin 2.7 H AST 124 H ALT 38 H Alkaline Phosphatase 232 H Troponin I Total Protein 5.2 L Albumin 2.5 L Amylase <30 L Lipase 15 L Urine Appearance Urine RBC Urine WBC Urine WBC Clumps Urine Bacteria Hyaline Casts Urine Mucus Urine Yeast (Budding) 10/23/19 10/23/19 10/23/19 03:37 03:37 03:45 WBC Hgb Hct MCV Neutrophils # PT 13.6 H INR 1.4 H ABG pH ABG pO2 ABG HCO3 ABG Total CO2 ABG O2 Saturation Potassium Chloride Carbon Dioxide BUN Creatinine Glucose Plasma Lactic Acid Aftab Calcium Total Bilirubin AST ALT Alkaline Phosphatase Troponin I 0.467 H* Total Protein Albumin Amylase Lipase Urine Appearance Cloudy H Urine RBC 22 H Urine WBC >182 H Urine WBC Clumps Many H Urine Bacteria Many H Hyaline Casts 2970 H Urine Mucus Many H Urine Yeast (Budding) Many H 10/23/19 10/23/19 10/23/19 08:30 11:58 12:05 WBC Hgb Hct MCV Neutrophils # PT INR ABG pH 7.18 L* ABG pO2 130 H ABG HCO3 16 L ABG Total CO2 17 L ABG O2 Saturation 97.5 H Potassium Chloride Carbon Dioxide BUN Creatinine Glucose Plasma Lactic Acid Aftab 14.1 H* 10.8 H* Calcium Total Bilirubin AST ALT Alkaline Phosphatase Troponin I Total Protein Albumin Amylase Lipase Urine Appearance Urine RBC Urine WBC Urine WBC Clumps Urine Bacteria Hyaline Casts Urine Mucus Urine Yeast (Budding) - Diagnostic Findings Additional studies: CT of the abdomen and pelvis as noted in HPI. Consistent with colonic obstruction either secondary to stricture or neoplasm most likely. Assessment and Plan Assessment: Impression: Severe Abdominal pain secondary to bowel obstruction. Abdominal sepsis and septic shock. Is strongly suspected. Hypotension secondary to abdominal sepsis and septic shock requiring pressors after fluid resuscitation. Acute anion gap metabolic acidosis secondary to sepsis and septic shock. Possible urinary tract infection as noted on her initial urinalysis. Leukocytosis secondary to abdominal sepsis. Recommendation: Continue fluid resuscitation. Continue norepinephrine and titrate to a mean arterial pressure of 65 Start antibiotics, presently patient is on Zosyn. Start sodium bicarb drip and titrate accordingly and monitor the acidosis Surgical intervention is strongly recommended as soon as possible. Prognosis is presently guarded. Discussed her condition with the surgical staff on the case. Updated her on her condition. Time with Patient: Greater than 30
[2019-10-23 14:49] VITALS: BMI 21.9
[2019-10-23] MEDS ORDERED: MIDAZOLAM 2 MG/2 ML VIAL ONE (15:19)
[2019-10-23] MEDS ORDERED: fentaNYL (PF) 50 MCG/ML 2 ML AMP ONE (15:19)
[2019-10-23] MEDS ORDERED: ETOMIDATE 2 MG/ML 10 ML VIAL ONE (15:19)
[2019-10-23] MEDS ORDERED: ROCURONIUM BROMIDE 10 MG/ML 5 ML VIAL IV ONE (15:19)
[2019-10-23] MEDS ORDERED: LIDOCAINE 1% INJ 10MG/ML (20 ML MDV) ONE (15:19)
[2019-10-23] MEDS ORDERED: IV FLUID CONTINUATION 1,000 ML IV ONE (15:19)
[2019-10-23] MEDS ORDERED: SUCCINYLCHOLINE CHLORIDE 100 MG/5 ML SYR IV ONE (15:19)
[2019-10-23] MEDS ORDERED: ALBUMIN HUMAN 5% (12.5gm) 250 ML BOTTLE IVPB ONE (15:19)
--- NOTE | 2019-10-23 17:26 | XR ---
EXAMINATION TYPE: XR abdomen 1V DATE OF EXAM: 10/23/2019 COMPARISON: 08/17/2012 HISTORY: Possible foreign body. Incorrect sponge count TECHNIQUE: 2 views supine FINDINGS: There are multiple surgical clips in the abdomen and pelvis. There is a right hip prosthesi s. I see no evidence of a sponge. There is advanced osteoarthritis left hip joint. There are surgical clips apparently from anastomosis in the left mid abdomen. IMPRESSION: No evidence of a sponge.
[2019-10-23 18:13] LABS: Glucose,Whole Blood 98 mg/dL (75-99)
[2019-10-23 18:14] LABS: ABG Base Excess -10.8 mmol/L; ABG HCO3 17 mmol/L (21-25); ABG Oxygen Saturation 99.5 % (94-97); ABG PCO2 38 mmHg (35-45); ABG PH 7.25 (7.35-7.45); ABG PO2 390 mmHg (83-108); ABG TCO2 18 mmol/L (19-24)
[2019-10-23] MEDS ORDERED: PROPOFOL 1,000 MG in EMPTY BAG 1 BAG IV SCH (18:15)
[2019-10-23 18:16] LABS: Allen Test Performed? NO
--- NOTE | 2019-10-23 18:33 | XR ---
EXAMINATION TYPE: XR chest 1V portable DATE OF EXAM: 10/23/2019 COMPARISON: Today HISTORY: Check tube placement TECHNIQUE: Single view FINDINGS: Endotracheal tube is 3 cm from the perla. Nasogastric tube is in the stomach. Lungs are cl ear of infiltrate. There is no heart failure. There are chest leads. IMPRESSION: No active cardiopulmonary disease. No change.
[2019-10-23 18:38] LABS: Albumin 1.5 g/dL (3.5-5.0); Magnesium 1.7 mg/dL (1.6-2.3); Phosphorus 5.6 mg/dL (2.5-4.5); Potassium 3.1 mmol/L (3.5-5.1)
[2019-10-23 18:55] LABS: Calcium 5.1 mg/dL (8.4-10.2)
[2019-10-23 19:22] LABS: HCT 35.3 % (34.0-46.0); Hypochromasia Slight; MCH 32.6 pg (25.0-35.0); MCHC 31.8 g/dL (31.0-37.0); MCV 102.8 fL (80.0-100.0); Macrocytosis Slight; Mean Platelet Volume 7.9; Platelet Count 259 k/uL (150-450); RBC 3.43 m/uL (3.80-5.40); RDW 13.8 % (11.5-15.5); WBC 4.4 k/uL (3.8-10.6)
[2019-10-23 19:29] LABS: HGB 11.2 gm/dL (11.4-16.0)
[2019-10-23] MEDS ORDERED: DEXTROSE 5% IN WATER 1,000 ML with SODIUM BICARB (1 MEQ/ML) 100 ML IV SCH (19:30)
[2019-10-23 19:45] LABS: Band Neutrophils % 9 %; Lymphocytes # (M) 1.58 k/uL (1.0-4.8); Monocytes # (M) 0.04 k/uL (0-1.0); Neutrophils % (M) 54 %; Nucleated Red Blood Cells 0 /100 WBC (0-0); Total Cells Counted 100
[2019-10-23] MEDS ORDERED: CALCIUM GLUCONATE 1 GM in SODIUM CHLORIDE 0.9% 100 ML IVPB ONE (20:47)
[2019-10-23] MEDS ORDERED: CHLORHEXIDINE GLUCONATE 15 ML CUP MUCOUS MEM SCH (21:00)
[2019-10-23] MEDS ORDERED: SODIUM CHLORIDE 0.9% 150 ML with VASOPRESSIN 60 UNIT IV SCH ×2 (23:00)
[2019-10-24 00:03] LABS: ABG Base Excess -18.5 mmol/L; ABG Oxygen Saturation 98.1 % (94-97); ABG PCO2 24 mmHg (35-45); ABG PH 7.21 (7.35-7.45); ABG PO2 135 mmHg (83-108); ABG TCO2 10 mmol/L (19-24); Allen Test Performed? Yes
[2019-10-24 00:06] LABS: ABG HCO3 10 mmol/L (21-25)
[2019-10-24 02:11] VITALS: BP 73/46; PULSE 0; RESP 0; TEMP 95.7
--- NOTE | 2019-10-24 06:02 | PCN ---
PROCEDURE NOTE PROCEDURE: Placement of the right femoral arterial line. PREOPERATIVE DIAGNOSIS: Acute abdominal sepsis and bowel obstruction. POSTOPERATIVE DIAGNOSIS: Acute abdominal sepsis and bowel obstruction. ANESTHESIA USED: None deployed. PROCEDURE: The right groin was prepared in a sterile fashion and drapes were applied. The right femoral artery was easily cannulated, and a guidewire was placed. A catheter was inserted over the guidewire, and the guidewire was removed. Good blood flow and good waveform were noted, no evidence of any immediate complications. Line was secured using 3.0 silk sutures. MMODL / IJN: [id number] /
[2019-10-24] MEDS ORDERED: LEVOFLOXACIN 750MG-D5W PMX 750 MG in DEXTROSE/WATER 1 150ML.BAG IVPB SCH (09:00)
[2019-10-24] MEDS ORDERED: PANTOPRAZOLE 40 MG/10 ML VIAL IVP SCH (09:00)
--- NOTE | 2019-10-24 14:15 | P.DS ---
Providers Date of admission: 10/23/19 07:05 Attending physician: Mamadou Lancaster Consults: 10/23/19 07:05 Consult Physician Stat Consulting Provider: Isaías Short Consult Reason/Comments: Abdominal pain and distention. Do you want consulting provider notified?: Already Contacted Consult Physician Stat Consulting Provider: Jaye Crowder Reason/Comments: Intensive care management. Do you want consulting provider notified?: Already Contacted Primary care physician: Stated None Hospital Course: 63-year-old admitted with the septic shock secondary to ischemic bowel. Patient underwent emergent laparotomy and the patient is found to have ischemic bowel and involving most of the colon. Patient has a: Fabian as well. Patient was subsequently transferred to ICU , her clinical condition worsened overnight and patient may have had acute myocardial infarction as there were some ST elevations found on the personnel monitor subsequently . Her baseline overall prognosis is extremely poor. Plan - Discharge Summary Discharge Rx Participant: No New Discharge Prescriptions: No Action cloNIDine HCL [Catapres] 0.1 mg PO ONCE PRN PRN Reason: Blood Pressure - High Discharge Medication List cloNIDine HCL [Catapres] 0.1 mg PO ONCE PRN 10/23/19 [History] Follow up Appointment(s)/Referral(s): None,Stated [Primary Care Provider] - 1-2 days Discharge Disposition: - Preliminary Cause of Preliminary Cause of : septic shock secondary to ischemic bowel
--- NOTE | 2019-11-08 16:02 | P.OP ---
Date of Procedure: 10/23/19 Preoperative Diagnosis: Bowel obstruction Postoperative Diagnosis: Colonic bowel obstruction and sigmoid colon Colonic necrosis Procedure(s) Performed: Exposure laparotomy Subtotal colectomy Ileostomy Abdominal washout Anesthesia: JEROD Surgeon: Isaías Short Estimated Blood Loss (ml): 100 Pathology: other (Small bowel and abdominal colon) Condition: critical Operative Findings: Cecal necrosis with perforation, right colon transverse colon descending colon with significant ischemia due to sigmoid colon obstructing lesion Description of Procedure: The patient's placed on the operating table in supine position. The patient was hypotensive prior to intubation. Anesthesia spent some time recessing the patient prior to intubation. The patient eventually received a general endotracheal tube anesthesia. Her abdomen was prepped and draped usual fashion. The abdomen was entered through a midline incision. Upon and the abdomen there is evidence of a colonic obstruction. The transverse colon and right colon appeared to be massively dilated. The cecum appeared to have necrosis. At this point it was decided to perform colectomy. The ischemia of the colon appeared to extend towards the distal descending colon at this point decided perform a subtotal colectomy with ileostomy. The right colon was mobilized. During manipulation of the right colon the cecum was perforated due to the necrosis. There is a large amount of fecal contamination. The abdomen was irrigated. The colon was decompressed. At this point the right colon was mobilized. And then the left colon was mobilized. The transverse colon was mobilized. The GI stapler was used to transect the terminal ileum. And then the JASON stapler was also used to transect the distal descending colon. The Enseal device is then used to divide the mesentery the bowel. The specimens of pathology. The abdomen was further irrigated with 4 L of normal saline. A suitable spot for the ileostomy was chosen in the right lower quadrant. And then the terminal ileum was brought out through the abdomi nal wall. The fascia was closed in looped #1 PDS suture. Skin was packed open. The ileostomy was matured with 3-0 Vicryl suture. Patient was sent to the ICU in critical condition.
--- NOTE | 2019-11-13 07:12 | CDI ---
Documentation Clarification Form Date: 11/13/19 From: Chata Arias Phone: If you have a question about this query, please contact Zuri Pierce, End Matcher at [phone] between 8am and 5pm. Admit Date: 10/23/19 Discharge Date: 10/24/19 Patient Name: Letitia Rojo Visit Number: [id number] ATTENTION: The Clinical Documentation Specialists (CDI) and [facility] Coding Staff appreciate your assistance in clarifying documentation. Please respond to the clarification below the line at the bottom and electronically sign. The CDI & [facility] Coding staff will review the response and follow-up if needed. Please note: Queries are made part of the Legal Health Record. If you have any questions, please contact the author of this message via ITS. Dear Dr. Joe Lincoln, Ischemic bowel is documented in the DS. Path report documents acute ischemic enteritis with mural necrosis, acute serositis and focal subserosal fibrosis. Please specify the acuity of ischemic bowel with terms such as: Acute Chronic Acute and chronic Other (please specify in the medical record) Clinically unable to further specify Unknown Acute MTDD
--- NOTE | 2019-11-13 07:42 | CDI ---
Documentation Clarification Form Date: 11/13/19 From: Chata Arias Phone: If you have a question about this query, please contact Zuri Pierce, Nailing Machine Feeder at [phone] between 8am and 5pm. Admit Date: 10/23/19 Discharge Date: 10/24/19 Patient Name: Letitia Rojo Visit Number: [id number] ATTENTION: The Clinical Documentation Specialists (CDI) and [facility] Coding Staff appreciate your assistance in clarifying documentation. Please respond to the clarification below the line at the bottom and electronically sign. The CDI & [facility] Coding staff will review the response and follow-up if needed. Please note: Queries are made part of the Legal Health Record. If you have any questions, please contact the author of this message via ITS. Dear Dr. Joe Lincoln, The patient presented with respiratory distress, mild tachypnea & rhonchi. History/Risk Factors: sepsis w septic shock, ATN, AMI, shock liver, toxic encephalopathy, Tobacco use: yes Home oxygen: No Vital signs: R-28-39, P-101-112, BP-78/56 Pulse oximetry: 90-94 ABG: pH - 7.18 pO2-130/390/135 pCO2-42/38/24 Lactate-8.9 Treatment: intubated in surgery, IV antibiotics In your professional opinion, can you please clarify if these findings signify one of the following conditions? Acute Respiratory Failure Acute on Chronic Respiratory Failure Chronic Respiratory Failure Acute Respiratory Distress Acute Respiratory Insufficiency Other Diagnosis, please specify Unable to determine Specificity: If known, further specify (if known): With hypercapnia? (pCO2 >50 and pH <7.35) With hypoxia? (pO2 <60 mm Hg or SpO2 <91% on room air) Patient had septic shock not respiratory failure MTDD
== END 2019-10-24 03:30 | disposition expired | DRG 853 ==
LOC: EC 03:29 → 2SICU 07:05
PROVIDERS: ADMIT Internal Medicine; ATTEND Internal Medicine
PROC: 04HY32Z Insertion of Monitoring Device into Lower Artery, Percutaneous Approach (ICD-10-PCS; 2019-10-23)
PROC: 02HV33Z Insertion of Infusion Device into Superior Vena Cava, Percutaneous Approach (ICD-10-PCS; 2019-10-23)
PROC: 0D9670Z Drainage of Stomach with Drainage Device, Via Natural or Artificial Opening (ICD-10-PCS; 2019-10-23)
PROC: 0DTM0ZZ Resection of Descending Colon, Open Approach (ICD-10-PCS; principal; 2019-10-23 15:00)
PROC: 3E1M38Z Irrigation of Peritoneal Cavity using Irrigating Substance, Percutaneous Approach (ICD-10-PCS; principal; 2019-10-23 15:00)
PROC: 0D1B0Z4 Bypass Ileum to Cutaneous, Open Approach (ICD-10-PCS; principal; 2019-10-23 15:00)
PROC: 0DTF0ZZ Resection of Right Large Intestine, Open Approach (ICD-10-PCS; principal; 2019-10-23 15:00)
PROC: 0DBL0ZZ Excision of Transverse Colon, Open Approach (ICD-10-PCS; principal; 2019-10-23 15:00)
DX: A41.9 Sepsis, unspecified organism (principal); R65.21 Severe sepsis with septic shock; K72.00 Acute and subacute hepatic failure without coma; K55.039 Acute (reversible) ischemia of large intestine, extent unspecified; N17.0 Acute kidney failure with tubular necrosis; K55.049 Acute infarction of large intestine, extent unspecified; K63.1 Perforation of intestine (nontraumatic); I21.9 Acute myocardial infarction, unspecified; G92 Toxic encephalopathy; K56.609 Unspecified intestinal obstruction, unspecified as to partial versus complete obstruction; E87.2 Acidosis; N39.0 Urinary tract infection, site not specified; Z66 Do not resuscitate; E87.6 Hypokalemia; D64.9 Anemia, unspecified; K44.9 Diaphragmatic hernia without obstruction or gangrene; I10 Essential (primary) hypertension; G89.4 Chronic pain syndrome; K90.0 Celiac disease; M54.9 Dorsalgia, unspecified; M19.90 Unspecified osteoarthritis, unspecified site; M81.0 Age-related osteoporosis without current pathological fracture; F32.9 Major depressive disorder, single episode, unspecified; F17.200 Nicotine dependence, unspecified, uncomplicated; Z71.6 Tobacco abuse counseling; Z78.1 Physical restraint status; Z87.440 Personal history of urinary (tract) infections; Z87.81 Personal history of (healed) traumatic fracture; Z90.710 Acquired absence of both cervix and uterus; Z96.641 Presence of right artificial hip joint; Z98.890 Other specified postprocedural states; Z87.19 Personal history of other diseases of the digestive system; Z86.2 Personal history of diseases of the blood and blood-forming organs and certain disorders involving the immune mechanism; Z82.49 Family history of ischemic heart disease and other diseases of the circulatory system
CPT/HCPCS: 36415; 36556; 36600; 51702; 70450; 71045; 74018; 74176; 80053; 82150; 82805; 83605; 83690; 83735; 84100; 84484; 85025; 85610; 85730; 87040; 87077; 87086; 87186; 88309; 93005; 94002; 94770; 96361; 96365; 96366; 96367; 96375; 99291